=== PATIENT | female | born 1970 | race African-American/Black ===

== ENCOUNTER → 2016-07-16 | Outpatient (CLI) | payer BC ==
[~2016-07-16] MED LIST: AGGRENOX PO; APRESOLINE PO; ASPIRIN PO; CARDIZEM CD; CARDIZEM CD PO; CILOXAN5 ML OP; CLONIDINE; CLONIDINE HCL0.1 MG PO; FERROUS SULFATE PO; FISH OIL 1,0001 CA2 PO; GABAPENTIN300 M2 PO; HCTZ PO; HYDRALAZINE HC100 MG PO; IRON SUPPLEMENT1 TAB PO; LISINOPRIL PO; LISINOPRIL-HCTZ1 T14 PO; MAXZIDE-25 MG1 UDTAB; MEDROL PO; NAPROSYN500 MG PO; PLAVIX PO; ROBAXIN500 MG PO; TAZTIA XT120 M1 PO; TOPIRAMATE100 MG PO; VICODIN 5/500 T1 TAB PO; WELLBUTRIN XL150 M1 PO
--- NOTE | ~2016-07-16 | MR122 ---
[facility] A Service of [facility] & [facility] RADIOLOGY TEXT RESULTS PATIENT: MULU VIERA LOCATION: [facility] : 72 UNIT #: [id number] AGE: [address]: Dionicio Kathleen II, MD SEX: F ORDER DR: [id number] [address] [address] [id number] MR#: [id number] Acc #: [id number] NAME: MULU VIERA. : 1970 SEX: F STUDY DATE/TIME: 07/16/2016 9:48 UNIT: [facility] ROOM: STUDY DESCRIPTION: MR MRA Head Wo Contrast Attending Physician: Dionicio Kathleen II., M.D. Referring Physician: Dionicio Kathleen II., M.D. Ordering Physician: Dionicio Kathleen II., M.D. Primary Care Physician: Noah Hunter M.D. MRI CENTER REPORT This report is preliminary unless electronic signature is present. EXAM MR angiogram of the head without contrast dated 07/16/2016. COMPARISON MR angiogram of the head without contrast dated 04/23/2015. HISTORY Patient was diagnosed with moyamoya disease in 2007. Increasing headaches, which have worsened in the last few weeks. It is worse particularly with exertion. FINDINGS Source and 3-D reconstruction MIP images of the [place] was obtained without contrast. Bilateral intracranial internal carotid arteries demonstrate no flow noted in the bilateral supraclinoid ICA, stable. Bilateral anterior and middle cerebral arteries are not clearly seen involving the proximal portions. There might be some distal reconstitution. Stable. Prominent bilateral PComs are present. There is a stent in the right M1 segment proximally with susceptibility artifact around it limiting the evaluation of flow within it. Stable. Posterior circulation demonstrates normal-appearing basilar artery and left posterior cerebral artery. The right P1 is small and along with the right P1 the right PCom predominantly contributes to the flow in the P2 and distal portions of the right [employer] without any distal compromise. The left vertebral artery predominantly feeds the basilar artery. The visualized V4 segment of the right vertebral artery decreases in caliber as it extends to the vertebrobasilar junction and it is of very small size in the [id number] aspects. Stable. IMPRESSION 1. No significant interval change when compared to the MRI from last year. [facility] A Service of [facility] RADIOLOGY TEXT RESULTS PATIENT: MULU VIERA LOCATION: [facility] : 72 UNIT #: [id number] AGE: [address]: Dionicio Kathleen II, MD SEX: F ORDER DR: 2. Patient is known to have moyamoya disease, which is redemonstrated in the current study. Bilateral supraclinoid ICA and the proximal bilateral anterior and middle cerebral arteries do not demonstrate any obvious flow. Stable. 3. There is a stent with susceptibility artifact in the right M1 segment, stable. 4. Posterior circulation is stable with persistent appearance of the right [employer] and good distal flow. The right V4 segment is of very small caliber, stable. Dictated by... Daniel Knutson M.D. THIS IS AN ELECTRONICALLY VERIFIED REPORT Daniel Knutson M.D. at 07/19/2016 1:47 PM CPR/pc TD: 07/17/2016 12:49 JOB #: [id number] MRI CENTER REPORT Page 1 of 1
--- NOTE | ~2016-07-16 | MR134 ---
[facility] A Service of [facility] & [facility] RADIOLOGY TEXT RESULTS PATIENT: MULU VIERA LOCATION: [facility] : 72 UNIT #: [id number] AGE: [address]: Dionicio Kathleen II, MD SEX: F ORDER DR: [id number] [address] [address] [id number] P MR#: [id number] Acc #: [id number] NAME: MULU VIERA. : 1970 SEX: F STUDY DATE/TIME: 07/16/2016 10:55 UNIT: [facility] ROOM: STUDY DESCRIPTION: MR MRA Neck Wo Contrast Attending Physician: Dionicio Kathleen II., M.D. Referring Physician: Dionicio Kathleen II., M.D. Ordering Physician: Dionicio Kathleen II., M.D. Primary Care Physician: Noah Hunter M.D. MRI CENTER REPORT This report is preliminary unless electronic signature is present. EXAM MR angiogram of the neck without contrast dated 07/16/2016. COMPARISON CTA head and neck dated 05/13/2015, MRA neck without contrast dated 04/23/2015. HISTORY Moyamoya disease diagnosed in 2007. Increasing headaches which have worsened in the last few weeks. Headache is worse with exertion. FINDINGS Source and 3-D reconstruction MIP images of the neck arteries were obtained without contrast. Motion artifact limits evaluation. Three-vessel aortic arch is seen. Bilateral common, internal, and external carotid arteries demonstrate no focal significant stenosis, particularly in bilateral ICA per NASCET criteria. There is a small caliber of bilateral uncinate in the neck diffusely than usual but it is stable when compared to the prior study. The origin and proximal portion of the V1 segment of the right vertebral artery is not clearly seen on the current study. It was within normal limits in the CTA neck. IMPRESSION 1. No focal significant stenosis per NASCET criteria in bilateral ICA bulbs. 2. There is mild decrease in caliber of bilateral cervical ICA when compared to a normal patient but it is stable when compared to the prior studies in the current patient without any superimposed stenosis. 3. The origin of the V1 segment of the right vertebral artery and its proximal portion is not clearly seen on the current study. It did demonstrate good flow on the previous study, previous CTA neck from last year. [facility] A Service of [facility] & [facility] RADIOLOGY TEXT RESULTS PATIENT: MULU VIERA LOCATION: [facility] : 72 UNIT #: [id number] AGE: [address]: Dionicio Kathleen II, MD SEX: F ORDER DR: 4. Patient is known to have Moyamoya disease with significant intracranial arterial findings. Dictated by... Daniel Knutson M.D. THIS IS AN ELECTRONICALLY VERIFIED REPORT Daniel Knutson M.D. at 07/19/2016 1:47 PM CPR/tmw TD: 07/17/2016 13:06 JOB #: [id number] MRI CENTER REPORT Page 1 of 1
--- NOTE | ~2016-07-16 | MR17 ---
[facility] A Service of [facility] & [facility] RADIOLOGY TEXT RESULTS PATIENT: MULU VIERA LOCATION: [facility] : 72 UNIT #: [id number] AGE: [address]: Dionicio Kathleen II, MD SEX: F ORDER DR: [id number] [address] [address] [id number] P MR#: [id number] Acc #: [id number] NAME: MULU VIERA. : 1970 SEX: F STUDY DATE/TIME: 07/16/2016 10:21 UNIT: [facility] ROOM: STUDY DESCRIPTION: MR Brain WWo Contrast Attending Physician: Dionicio Kathleen II., M.D. Referring Physician: Dionicio Kathleen II., M.D. Ordering Physician: Dionicio Kathleen II., M.D. Primary Care Physician: Noah Hunter M.D. MRI CENTER REPORT This report is preliminary unless electronic signature is present. EXAM MRI of the brain with and without contrast dated 07/16/2016. COMPARISON MRI brain with and without contrast dated 04/23/2015, MRA head and neck dated 07/16/2016. HISTORY Increasing headaches, which is worsening in the last few weeks. It is particularly worse after exertion. History of moyamoya disease diagnosed in 2007. FINDINGS Multisequence multiplanar imaging of the brain was obtained with and without contrast. 20 mL of MultiHance was administered intravenously. No acute stroke, enhancing intracranial mass, mass effect, midline shift or hydrocephalus. Multiple nonenhancing hyperintense T2 signal changes are noted in the white matter, more prominent in the right frontal cortex and underlying subcortical white matter. These are also noted in the previous study. Susceptibility artifact from right M1 segment stent is seen. There is a partially empty sella, which is white. Pineal region and upper cervical spine do not demonstrate any significant abnormality. Imaged orbits and the ocular structures, paranasal sinuses and mastoid air cells do not demonstrate any significant abnormality. IMPRESSION 1. Multiple nonenhancing nonspecific hyperintense T2-signal lesions are noted in the brain, likely related to chronic ischemic insults in this patient with known moyamoya disease. Refer to MRA and CTA head and neck from before. 2. No superimposed acute ischemic insult or enhancing new mass. [facility]. [facility] A Service of [facility] RADIOLOGY TEXT RESULTS PATIENT: MULU VIERA LOCATION: [facility] : 72 UNIT #: [id number] AGE: [address]: Dionicio Kathleen II, MD SEX: F ORDER DR: Dictated by... Daniel Knutson M.D. THIS IS AN ELECTRONICALLY VERIFIED REPORT Daniel Knutson M.D. at 07/19/2016 1:47 PM CPR/pc TD: 07/17/2016 13:22 JOB #: [id number] MRI CENTER REPORT Page 1 of 1
== END | disposition home or self-care (01) ==
LOC: SMRI 07:44
DX: G44.84 Primary exertional headache (principal); I67.5 Moyamoya disease; G93.89 Other specified disorders of brain; Z95.828 Presence of other vascular implants and grafts
CPT/HCPCS: 70544; 70547; 70553; A9581